=== PATIENT | female | born 1995 | race Caucasian/White ===

== ENCOUNTER 2021-10-30 14:36 | Emergency (ER) | payer MEDICAID ==
[2021-10-30] MEDS ORDERED: Cyclobenzaprine 10 MG Tab PO ONE ×2 (16:22→18:46)
[2021-10-30] MEDS ORDERED: Acetaminophen/HYDROcodone 325-10 MG Tab PO ONE ×3 (16:22→18:36)
== END 2021-10-30 19:05 | disposition home or self-care (01) ==
LOC: LL.ED 14:36
DX: S22.089A Unspecified fracture of T11-T12 vertebra, initial encounter for closed fracture (principal); Z88.1 Allergy status to other antibiotic agents; Z88.7 Allergy status to serum and vaccine; Z79.899 Other long term (current) drug therapy; Z87.891 Personal history of nicotine dependence; W22.8XXA Striking against or struck by other objects, initial encounter
CPT/HCPCS: 72072; 72100; 72131; 99284; A9270

== ENCOUNTER 2022-01-06 12:16 | Emergency (ER) | payer MEDICAID | END 2022-01-06 14:50 | disposition home or self-care (01) | LOC: LL.ED 12:16 | DX: M25.571 Pain in right ankle and joints of right foot (principal); Z88.1 Allergy status to other antibiotic agents; Z88.8 Allergy status to other drugs, medicaments and biological substances | CPT/HCPCS: 73620-RT; 99283 ==